=== PATIENT | female | born 1955 | race Caucasian/White ===

== ENCOUNTER → 2017-01-16 | Outpatient (CLI) | payer MEDICARE, BC | END | disposition home or self-care (01) | LOC: RAD.S 01-15 10:34 | DX: M25.511 Pain in right shoulder (principal); M25.60 Stiffness of unspecified joint, not elsewhere classified; M47.812 Spondylosis without myelopathy or radiculopathy, cervical region; Z98.890 Other specified postprocedural states; M85.80 Other specified disorders of bone density and structure, unspecified site ==